=== PATIENT | female | born 2000 | race Caucasian/White ===

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

== ENCOUNTER 2020-06-24 12:47 | Inpatient (IN) ==
[2020-06-24] MEDS ORDERED: INFLUENZA VIRUS VACCINE 0.5 ML SYRINGE IM ONE ×2 (14:00→14:30)
[2020-06-24] MEDS ORDERED: MEPERIDINE 50 MG/1 ML VIAL IV PRN ×2 (14:02)
[2020-06-24] MEDS ORDERED: ONDANSETRON 4 MG/2 ML VIAL IV PRN (14:02)
[2020-06-24] MEDS ORDERED: LACTATED RINGERS 1,000 ML IV PRN (14:02)
[2020-06-24 14:20] LABS: Basophils # 0.1 10*3/uL (0.0-0.2); Basophils % 0.3 % (0.0-0.8); Eosinophils # 0.1 10*3/uL (0.0-0.87); Eosinophils % 0.5 % (0.00-10.9); Hematocrit 34.8 VOL% (35.7-47.0); Hemoglobin 11.8 GM/DL (12.0-16.0); Immature Granulocytes % 3.4 %; Immature Granulocytes Absolute 0.82 #; Lymphocytes % 16.9 % (21.3-54.2); Mean Corpuscular HGB Conc 33.9 GM/DL (32-36); Mean Corpuscular Volume 91.8 FL (87-102); Mean Platelet Volume 9.9 FL (9.6-12.0); Monocytes % 5.6 % (1.7-12.7); Neutrophils % 73.3 % (38.7-73.9); Platelet Count 366 T/CUMM (130-400); Red Blood Count 3.79 MC/CUMM (3.8-5.5); Red Cell Distribution Width 12.5 % (9.3-17.3); White Blood Count 23.9 T/CUMM (4-12)
[2020-06-24 14:43] LABS: Anisocytosis Slight; Band Neutrophils 2 % (0-10); Lymphocytes 18 % (20-55); Metamyelocytes 1 %; Platelet Estimate Adequate; Polychromasia Few; Segmented Neutrophils 74 % (50-85); Total Cells Counted 100
[2020-06-24 14:54] LABS: Alanine Aminotransferase 17 U/L (13-56); Albumin 3.3 G/DL (3.4-5.0); Alkaline Phosphatase 237 U/L (45-117); Aspartate Amino Transferase 15 U/L (0-37); Bilirubin,Total < 0.39 MG/DL (0.2-1.0); Blood Urea Nitrogen 5 MG/DL (7-18); Calcium 9.8 MG/DL (8.5-10.1); Estimated Glom Filtration Rate 150 ML/MIN; Glucose 90 MG/DL (74-106); Osmolality,Calculated 266.1 MOS/KG (273-304); Total Protein 8.6 G/DL (6.4-8.3)
[2020-06-24 17:08] LABS: Hepatitis B Surface Ag Quant 0.15 Index; Hepatitis B Surface Ag Result Negative (Negative)
[2020-06-24 17:31] LABS: HIV Antigen/Antibody Result Nonreactive (Nonreactive)
[2020-06-25] MEDS: BUTORPHANOL 2 MG/ML VIAL IV PRN ×2 (02:11→06:30)
[2020-06-25] MEDS ORDERED: NALOXONE 0.4 MG/ML VIAL IV PRN (08:43)
[2020-06-25] MEDS ORDERED: hydrOXYzine HCL 25 MG/1 ML VIAL IM PRN (08:43)
[2020-06-25] MEDS ORDERED: FAMOTIDINE 20 MG/2 ML VIAL IV ONE (08:43)
[2020-06-25] MEDS ORDERED: PROMETHAZINE 25 MG/1 ML VIAL IM ONE (08:43)
[2020-06-25] MEDS ORDERED: LACTATED RINGERS 1,000 ML IV ONE (08:43)
[2020-06-25] MEDS ORDERED: CITRIC ACID/SODIUM CITRATE 30 ML UDCUP PO ONE (08:43)
[2020-06-25] MEDS ORDERED: ePHEDrine 50 MG/ML VIAL IV PRN (08:43)
[2020-06-25] MEDS ORDERED: diphenhydrAMINE 50 MG/1 ML VIAL IV PRN ×2 (08:43)
[2020-06-25] MEDS ORDERED: fentaNYL 2 MCG/ROPIV 0.2% EPID 100 ML EPIDURAL SCH (09:00)
[2020-06-25] MEDS ORDERED: OXYTOCIN/LR 20 UNIT/1,000 ML BAG IV ONE ×2 (10:26→12:50)
[2020-06-25] MEDS ORDERED: miSOPROStoL 200 MCG TABLET ONE (10:26)
[2020-06-25] MEDS ORDERED: METHYLERGONOVINE 0.2 MG/1 ML AMP ONE (10:26)
[2020-06-25] MEDS ORDERED: TRANEXAMIC ACID 1,000 MG/10 ML VIAL ONE (10:26)
[2020-06-25] MEDS ORDERED: CARBOPROST TROMETHAMINE 250 MCG/ML AMP IM ONE (10:27)
[2020-06-25 13:09] LABS: Cord Venous Blood HCO3 21.2 MMOL/L; Cord Venous Blood PCO2 42.2 MMHG; Cord Venous Blood PO2 32.9 MMHG
[2020-06-25] MEDS ORDERED: MAGNESIUM HYDROXIDE SUSP 30 ML UDCUP PO PRN (15:41)
[2020-06-25] MEDS ORDERED: BISACODYL 10 MG SUPP RECTAL PRN (15:41)
[2020-06-25] MEDS ORDERED: ACETAMINOPHEN 500 MG TABLET PO PRN (15:41)
[2020-06-25] MEDS ORDERED: LACTATED RINGERS 1,000 ML IV SCH (16:00)
[2020-06-25] MEDS: IBUPROFEN 800 MG TABLET PO PRN (20:01)
[2020-06-25] MEDS: DOCUSATE SODIUM 100 MG CAPSULE PO SCH (21:35)
[2020-06-26] MEDS: IBUPROFEN 800 MG TABLET PO PRN ×2 (03:24→15:58)
[2020-06-26 06:48] LABS: Basophils % 0.2 % (0.0-0.8); Eosinophils # 0.1 10*3/uL (0.0-0.87); Eosinophils % 0.3 % (0.00-10.9); Hematocrit 31.8 VOL% (35.7-47.0); Hemoglobin 10.9 GM/DL (12.0-16.0); Immature Granulocytes Absolute 0.41 #; Lymphocytes # 3.5 10*3/uL (1.4-4.0); Lymphocytes % 16.8 % (21.3-54.2); Mean Corpuscular HGB Conc 34.3 GM/DL (32-36); Mean Corpuscular Volume 91.1 FL (87-102); Mean Platelet Volume 9.9 FL (9.6-12.0); Monocytes % 6.6 % (1.7-12.7); Neutrophils % 74.1 % (38.7-73.9); Platelet Count 275 T/CUMM (130-400); Red Blood Count 3.49 MC/CUMM (3.8-5.5); Red Cell Distribution Width 12.5 % (9.3-17.3)
[2020-06-26 08:43] LABS: Eosinophils 1 % (0-10); Lymphocytes 21 % (20-55); Segmented Neutrophils 74 % (50-85); Total Cells Counted 100
[2020-06-26 08:44] LABS: Platelet Estimate Normal; Polychromasia Slight
[2020-06-26] MEDS: DOCUSATE SODIUM 100 MG CAPSULE PO SCH ×2 (10:29→21:37)
[2020-06-26] MEDS: MULTIVITAMIN (PRENATAL) TABLET PO SCH (10:29)
[2020-06-26] MEDS ORDERED: ALUMINUM/MAGNES/SIMETH MAX STR 30 ML UDCUP PO PRN (21:26)
[2020-06-26] MEDS: PANTOPRAZOLE 40 MG TABLET PO SCH (21:37)
[2020-06-27] MEDS: IBUPROFEN 800 MG TABLET PO PRN (08:44)
[2020-06-27] MEDS: DOCUSATE SODIUM 100 MG CAPSULE PO SCH (08:44)
[2020-06-27] MEDS: MULTIVITAMIN (PRENATAL) TABLET PO SCH (08:44)
[2020-06-27] MEDS: PANTOPRAZOLE 40 MG TABLET PO SCH (08:44)
[2020-06-27 10:38] VITALS: BP 129/75
== END 2020-06-27 13:20 | disposition home or self-care (01) | DRG 560 ==
LOC: N.LDOUT 12:47 → N.LD 12:53 → N.OB 06-25 16:08
PROVIDERS: ADMIT Obstetrics & Gynecology; ATTEND Obstetrics & Gynecology